=== PATIENT | female | born 1970 | race African-American/Black ===

== ENCOUNTER 2018-06-24 08:51 | Day surgery (SDC) | payer BC, OTHER ==
[2018-06-23 11:02] VITALS: BMI 32.8
[2018-06-24] MEDS ORDERED: MIDAZOLAM HCL 2 MG/2 ML SINGLE DOSE VIAL IVPUSH ONE ×2 (12:30→12:45)
[2018-06-24] MEDS ORDERED: ONDANSETRON 4 MG/2 ML VIAL IVPUSH ONE (12:45)
[2018-06-24] MEDS ORDERED: KETOROLAC TROMETHAMINE 15 MG/ML VIAL IVPUSH ONE ×2 (13:15→13:30)
[2018-06-24] MEDS ORDERED: HYDROmorphone HCl 2 MG/ML VIAL IVPUSH ONE (13:30)
[2018-06-24] MEDS ORDERED: HYDROmorphone *PCA* 10MG/50ML DISP.SYRIN PCA ONE ×2 (14:34→14:45)
[2018-06-24] MEDS ORDERED: ONDANSETRON 4 MG/2 ML VIAL ONE (15:50)
[2018-06-24] MEDS ORDERED: hydrALAZINE HCL 20 MG/ML VIAL IVPUSH ONE ×3 (16:17→17:00)
[2018-06-24] MEDS ORDERED: hydrALAZINE HCL 20 MG/ML VIAL ONE (16:20)
--- NOTE | 2018-06-24 17:09 | PN ---
Teaching Attending Note Name of Resident: Elijah Cabrera ATTENDING PHYSICIAN STATEMENT I saw and evaluated the patient. I reviewed the resident's note and discussed the case with the resident. I agree with the resident's findings and plan as documented. SUBJECTIVE: CC: s/p fibroid embolization HPI: 47 y/o lady with h/o HTN, and fibroid uterus who presented for fibroid embolization . Now she is still in PACU, has pain in lower abdomen, has no fever or chills, has no CP or SOB. denies h/o bleeding but had the procedure mp to pressure in her abdomen. she has h/o HTN but she does not take her medications regularly. she takes it only when she works. OBJECTIVE: NAD , VS reviewed. BP 151/11 . HR 70s . Cv: RRR. No MRG Lungs: CTAB Ext : no edema or erythema, DP 2+ b/l Abd:soft, TTP in all quadrants, does not allow detailed exam . hypoactive BS. R groin pressure dressing, dry and intact ASSESSMENT AND PLAN: 47 y/o lady with h/o HTN, and fibroid uterus who presented for fibroid embolization. 1- S/p fibroid embolization. 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 will sop in AM , pt request stop at 4 am. - will start percocet at 4 am as needed - bowel regimen - CBC - can ambulate at 6 pm and can remove tate then. - start iquid diet at 6 pm. regular diet in am - IVF will decrease to 100 due to hypertension - d/w Dr. Gant 2- HTN urgency : due to Nausea and pain. - gave 5 of hydralazine with no effect. will repeat. - will give her po medication . - monitor closely 3- dispo : will monitor and dc tomorrow if appropriate
[2018-06-24] MEDS ORDERED: SODIUM CHLORIDE 1,000 ML IV SCH ×2 (17:15→17:53)
--- NOTE | 2018-06-24 17:16 | HP ---
CHIEF COMPLAINT: Uterine fibroid embolization HISTORY OF PRESENT ILLNESS: 47yo F with history of HTN who presents today after embolization of her uterine fibroids. Pt reports having periodic bleeding episodes and irregular menstruation which caused her to seek embolization intervention. Today she underwent her uterine embolization without complication and was recovered in PACU. Pt was noted to have elevated BP ranging from 140-150/90-112. She received two doses of Hydralazine 5mg IvP throughout the day, however this had little effect. Pt reports only taking her Lisinopril 20mg intermittently ( usually on the days that she works). She also endorsed being nauseous earlier in the day, however reports she does not have nausea at this time. Currently pt has little pain and she does not want to use the RN ADVANCED pump. She reports not using it all day and would like to be put on pills at this point. In addition, pt is currently hungry. Pt denies any headaches, vomiting, shortness of breath, chest pain, palpitations, lower extremity edema, back pain, neck pain. PAST MEDICAL HISTORY: HTN Anxiety Fibroids PAST SURGICAL HISTORY: Uterine embolization (06/24/18) Social History: Smoking: Denies Alcohol: Denies Drugs: Denies Lives at home with daughter; independent with ADLs Family History: Noncontributory Allergies No Known Allergies Allergy (Verified 12/15/16 15:57) HOME MEDICATIONS: Need to be confirmed with pharmacy; reportedly she only takes Lisinopril 20mg alone inconsistently REVIEW OF SYSTEMS Limited due to pt's cooperation. See HPI above for ROS PHYSICAL EXAMINATION Vital Signs - 24 hr 06/24/18 06/24/18 16:15 16:30 Temperature Pulse Rate 74 80 Pulse Rate [ Left Lower Arm] Respiratory 13 17 Rate Respiratory Rate [Left Lower Arm] Blood Pressure 155/119 H 157/111 H Blood Pressure [Left Lower Arm ] O2 Sat by Pulse Left Lower Arm] PE: Pt did not allow me to examine her at this point. Per attending pt's lower abdomen was TTP Laboratory Results 06/24/18 09:05 Urine HCG, Qual Negative ASSESSMENT/PLAN: Uterine embolization POD #0 HTN Urgency --Hydralazine 5mg IVP x2 doses given without much effect. --Start Lisinopril 10mg once now; continue Lisinopril 20mg qDaily tomorrow AM --Decrease IVF to 75cc/hr --Discontinue RN ADVANCED will add Oxycodone 5mg q4h PRN for pain 4-6 with breakthrough morphine 7-10 IVP --Due to pain medication's constipating nature will put on Colace 100mg BID PO while she is taking narcotics --Will TOV tomorrow AM --Incentive spirometer ordered --Stat CBC and BMP --Full liquid diet tonight and can advance as tolerated for tomorrow AM --ECG now for assessment of QTc; will order antiemetic based on Qtc (if WNL can use Zofran; if elongated use compazine or phenergan) FEN: Fluids: NS@75cc/hr Electrolyte abnormalities: stat labs for assessment Nutrition: Full liquid now; regular tomorrow AM PPX: DVT - SCDs both legs due to at risk of bleed GI - Not indicated Dispo: Satellite status post embolization Case discussed with Dr. Caroline Cabrera, DO - IM PGY-2 Visit type - Emergency Visit Emergency Visit: No - New Patient This patient is new to me today: Yes Date on this admission: 06/24/18 - Critical Care Critical Care patient: No
[2018-06-24] MEDS ORDERED: LISINOPRIL 20 MG TABLET (FP) PO ONE (18:00)
[2018-06-24 18:39] LABS: BASO % 0.5 % (0-2.0); EOS % 0.8 % (0-4.5); HEMATOCRIT 36.2 % (32.4-45.2); HEMOGLOBIN 12.3 GM/dL (10.7-15.3); LYMPH % 16.5 % (8-40); MCH 26.5 pg (25.7-33.7); MCHC 33.8 g/dl (32.0-36.0); MEAN CELL VOLUME 78.4 fl (80-96); MEAN PLT VOLUME 7.9 fl (7.5-11.1); MONO % 9.3 % (3.8-10.2); NEUT % 72.9 % (42.8-82.8); PLATELET COUNT 259 K/MM3 (134-434); RBC 4.62 M/mm3 (3.60-5.2); RDW 16.9 % (11.6-15.6)
[2018-06-24 19:40] LABS: ANION GAP 10 MMOL/L (8-16); BLOOD UREA NITROGEN 9 mg/dL (7-18); CALCIUM 8.9 mg/dL (8.5-10.1); CHLORIDE 106 mmol/L (98-107); CO2 24 mmol/L (21-32); CREATININE 0.9 mg/dL (0.55-1.3); GLUCOSE,RANDOM 86 mg/dL (74-106); POTASSIUM 3.5 mmol/L (3.5-5.1); SODIUM 139 mmol/L (136-145)
[2018-06-24] MEDS: oxyCODONE HCL 5 MG TABLET PO PRN (19:49)
[2018-06-24] MEDS: DOCUSATE SODIUM 100 MG CAPSULE (FP) PO SCH (21:08)
[2018-06-24] MEDS: MORPHINE SULFATE 2 MG/ML VIAL IVPUSH PRN (21:14)
[2018-06-25] MEDS: oxyCODONE HCL 5 MG TABLET PO PRN ×4 (00:11→12:08)
[2018-06-25] MEDS: MORPHINE SULFATE 2 MG/ML VIAL IVPUSH PRN (02:04)
[2018-06-25] MEDS ORDERED: PROCHLORPERAZINE MALEATE 5 MG TABLET PO ONE (02:17)
[2018-06-25 02:42] VITALS: TEMP 99.2
[2018-06-25] MEDS ORDERED: PT OWN MED DRAWER 7, Y5N ONE (06:22)
[2018-06-25 06:52] LABS: BASO % 0.5 % (0-2.0); EOS % 1.9 % (0-4.5); HEMATOCRIT 34.2 % (32.4-45.2); HEMOGLOBIN 11.7 GM/dL (10.7-15.3); LYMPH % 18.3 % (8-40); MCH 26.5 pg (25.7-33.7); MCHC 34.2 g/dl (32.0-36.0); MEAN CELL VOLUME 77.4 fl (80-96); MEAN PLT VOLUME 8.1 fl (7.5-11.1); MONO % 7.9 % (3.8-10.2); NEUT % 71.4 % (42.8-82.8); PLATELET COUNT 266 K/MM3 (134-434); RBC 4.42 M/mm3 (3.60-5.2); RDW 16.7 % (11.6-15.6); WHITE BLOOD COUNT 6.2 K/mm3 (4.0-10.0)
[2018-06-25 08:10] LABS: ANION GAP 9 MMOL/L (8-16); BLOOD UREA NITROGEN 9 mg/dL (7-18); CALCIUM 8.2 mg/dL (8.5-10.1); CHLORIDE 105 mmol/L (98-107); CO2 25 mmol/L (21-32); GLUCOSE,RANDOM 119 mg/dL (74-106); POTASSIUM 3.4 mmol/L (3.5-5.1); SODIUM 139 mmol/L (136-145)
[2018-06-25] MEDS ORDERED: POTASSIUM CHLORIDE TABS 20 MEQ TABLET.ER (FP) PO ONE (09:15)
[2018-06-25] MEDS: DOCUSATE SODIUM 100 MG CAPSULE (FP) PO SCH (09:38)
[2018-06-25] MEDS ORDERED: LISINOPRIL 20 MG TABLET (FP) PO SCH (10:00)
[2018-06-25 11:07] VITALS: BP 158/94; PULSE 82
--- NOTE | 2018-06-25 14:32 | DS ---
Physical Exam: SUBJECTIVE: Patient seen and examined OBJECTIVE: Vital Signs Period Temp Pulse Resp BP Sys/Mcmahon Pulse Ox Last 24 Hr 98.5 F-99.2 F 70-88 12-20 141-177/77-119 95-96 PHYSICAL EXAM GENERAL: The patient is awake, alert, and fully oriented, in no acute distress. HEAD: Normal with no signs of trauma. EYES: PERRL, extraocular movements intact, sclera anicteric, conjunctiva clear. ENT: Ears normal, nares patent, oropharynx clear without exudates, moist mucous membranes. NECK: Trachea midline, full range of motion, supple. LUNGS: Breath sounds equal, clear to auscultation bilaterally, no wheezes, no crackles, no accessory muscle use. HEART: Regular rate and rhythm, S1, S2 without murmur, rub or gallop. ABDOMEN: Soft, nontender, nondistended, normoactive bowel sounds, no guarding, no rebound, no hepatosplenomegaly, no masses. EXTREMITIES: 2+ pulses, warm, well-perfused, no edema. NEUROLOGICAL: Cranial nerves II through XII grossly intact. Normal speech, gait not observed. PSYCH: Normal mood, normal affect. SKIN: Warm, dry, normal turgor, no rashes or lesions noted. LABS Laboratory Results - last 24 hr 06/24/18 06/24/18 06/25/18 18:00 18:00 05:40 WBC 6.0 6.2 RBC 4.62 4.42 Hgb 12.3 11.7 Hct 36.2 D 34.2 MCV 78.4 L 77.4 L MCH 26.5 26.5 MCHC 33.8 34.2 RDW 16.9 H 16.7 H Plt Count 259 D 266 MPV 7.9 D 8.1 Absolute Neuts (auto) 4.4 4.4 Neutrophils % 72.9 71.4 Lymphocytes % 16.5 18.3 Monocytes % 9.3 7.9 Eosinophils % 0.8 1.9 D Basophils % 0.5 0.5 Nucleated RBC % 0 0 Sodium 139 Potassium 3.5 Chloride 106 Carbon Dioxide 24 Anion Gap 10 BUN 9 Creatinine 0.9 Creat Clearance w eGFR > 60 Random Glucose 86 Calcium 8.9 06/25/18 05:40 WBC RBC Hgb Hct MCV MCH MCHC RDW Plt Count MPV Absolute Neuts (auto) Neutrophils % Lymphocytes % Monocytes % Eosinophils % Basophils % Nucleated RBC % Sodium 139 Potassium 3.4 L Chloride 105 Carbon Dioxide 25 Anion Gap 9 BUN 9 Creatinine 1.0 Creat Clearance w eGFR 58.93 Random Glucose 119 H Calcium 8.2 L HOSPITAL COURSE: Date of Admission:06/24/18 47 y/o female with PMH of HTN and uterine fibroids came in to the ER with worsening uteerine/suprapubic pain. she underwent a fibroid embolization of the uterine artery with no parveen or post op complications. her pain subsided in addition to her bleeding and she was stable for dc back home with follow up with her pcp and electronic systems security assessment within one week Date of Discharge: 06/25/18 Minutes to complete discharge: 39 Discharge Summary Reason For Visit: UTERINE FIBROIDS Condition: Improved - Instructions Diet, Activity, Other Instructions: You came in to the emergency room with complaints of abdominal/uterine pain and underwent a uterine fibroid embolization. Please continue all of your home medications in addition: we are prescribing you medication for you pain. Please take when need, in addition, you will need to take stool softeners that we are prescribing you as these pain medications tend to cause constipation. Also your blood pressure was elevated in the hospital, please continue taking lisinopril/HCTZ daily and monitor your blood pressure We are referring you to a primary care physician to follow up with in one week *if you begin to experience any chest pains, bleeding, shortness of breath please return to the emergency room immediately please follow with your operator technician in 1 week Referrals: Finn Diego MD [Staff Physician] - 1 Week Disposition: HOME - Home Medications Comprehensive Discharge Medication List: Ambulatory Orders Albuterol Sulfate [Proair Hfa -] 1 - 2 inh PO PRN 06/23/18 Budesonide/Formeterol Fumarate [SYMBICORT 160/4.5mcg -] 2 inh IH PRN 06/23/18 Docusate Sodium [Colace -] 100 mg PO BID #60 capsule 06/25/18 Lisinopril/Hydrochlorothiazide [Lisinopril-Hctz 20-25 mg Tab] 1 each PO DAILY # 30 tablet 06/25/18 Oxycodone HCl/Acetaminophen [Percocet 5-325 mg Tablet] 1 tab PO Q8H PRN #9 tablet MDD 3 tab 06/25/18 Sennosides [Senna] 8.6 mg PO DAILY #30 tablet 06/25/18 Problem List - Problems (1) Status post embolization of uterine artery Code(s): Z98.890 - OTHER SPECIFIED POSTPROCEDURAL STATES This patient is new to me today: Yes Date on this admission: 06/25/18 Emergency Visit: Yes Care time: The patient presented to the Emergency Department on the above date and was hospitalized for further evaluation of their emergent condition. Critical Care patient: No - Discharge Referral Referred to [facility] No
--- NOTE | 2018-06-26 07:46 | PN ---
Teaching Attending Note Name of Resident: Tonie Harry ATTENDING PHYSICIAN STATEMENT I saw and evaluated the patient. I reviewed the resident's note and discussed the case with the resident. I agree with the resident's findings and plan as documented. SUBJECTIVE: no pain, fever or chills OBJECTIVE: NAD , Cv: RRR. No MRG Lungs: CTAB Ext : no edema or erythema, DP 2+ b/l Abd:soft, TTP insuprapubic area ASSESSMENT AND PLAN: 47 y/o lady with h/o HTN, and fibroid uterus who presented for fibroid embolization. 1- S/p fibroid embolization. 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
== END 2018-06-25 13:34 | disposition home or self-care (01) ==
LOC: JASUSAT 08:51 → J6S 17:34 → JASUSAT 06-25 13:34
PROVIDERS: ATTEND Radiology Diagnostic Radiology
PROC: 04LF3DU Occlusion of Left Uterine Artery with Intraluminal Device, Percutaneous Approach (ICD-10-PCS; principal; 2018-06-24)
PROC: 04LE3DT Occlusion of Right Uterine Artery with Intraluminal Device, Percutaneous Approach (ICD-10-PCS; 2018-06-24)
DX: D25.9 Leiomyoma of uterus, unspecified (principal)
CPT/HCPCS: 36415; 37242; 76000-TC-FY; 76937-TC; 80048; 84703; 85025; C1760; C1769; C1887; C1894; J7030

== ENCOUNTER 2022-02-25 13:43 | Emergency (ER) | payer BC, OTHER ==
[2022-02-25] MEDS ORDERED: IBUPROFEN 600 MG TABLET (FP) PO ONE ×2 (14:00→14:10)
[2022-02-25 14:04] VITALS: BP 158/90; PULSE 93; RESP 20; TEMP 98.2; BMI 29.7
== END 2022-02-25 14:15 | disposition home or self-care (01) ==
LOC: FER 13:43
DX: J06.9 Acute upper respiratory infection, unspecified (principal)
CPT/HCPCS: 0241U-QW; 99283-25